=== PATIENT | female | born 1965 | race Caucasian/White ===

== ENCOUNTER 2023-03-03 22:12 | Emergency (ER) | payer OTHER ==
[2023-03-03 22:24] VITALS: BP 151/87; PULSE 61; RESP 18; TEMP 98.4; BMI 29.1
[2023-03-03] MEDS ORDERED: KETOROLAC TROMETHAMINE 30 MG/1 ML VIAL IM ONE (22:39)
[2023-03-03] MEDS ORDERED: KETOROLAC TROMETHAMINE 60 MG/2 ML VIAL ONE (22:47)
== END 2023-03-03 23:34 | disposition home or self-care (01) ==
LOC: JER 22:12 → JERFT 22:12
PROC: 3E0233Z Introduction of Anti-inflammatory into Muscle, Percutaneous Approach (ICD-10-PCS; principal; 2023-03-03)
DX: K04.7 Periapical abscess without sinus (principal); K08.89 Other specified disorders of teeth and supporting structures; R22.0 Localized swelling, mass and lump, head
CPT/HCPCS: 99284-25